=== PATIENT | female | born 1965 | race African-American/Black ===

== ENCOUNTER 2016-11-07 06:25 | Emergency (ER) | payer OTHER ==
[~2016-11-07] VITALS: Ht 154.9 cm; Wt 48.0 kg
[~2016-11-07 06:25] MED LIST: ASPI-1159 PO; FAMO40TA35 PO; PROT40 PO; [UNRECOGNIZED DRUG - REMARK]
[2016-11-07 11:20] LABS: CLARITY URINE CLEAR (CLEAR); COLOR URINE YELLOW (YELLOW); GLUCOSE URINE NEGATIVE (NEGATIVE); KETONES URINE NEGATIVE (NEGATIVE); LEUKOCYTE ESTERASE URINE NEGATIVE (NEGATIVE); NITRITE URINE NEGATIVE (NEGATIVE); OCCULT BLOOD URINE NEGATIVE (NEGATIVE); PH URINE 6.5 (4.5-8.0); PROTEIN URINE NEGATIVE (NEGATIVE); SPECIFIC GRAVITY URINE 1.009 (1.005-1.030); UROBILINOGEN URINE 0.2 E.U./dL (0.2-1.0)
[2016-11-07 12:29] VITALS: BP 128/74
== END 2016-11-07 12:46 | disposition home or self-care (01) ==
LOC: ER 09:56
DX: R59.0 Localized enlarged lymph nodes (principal); R19.00 Intra-abdominal and pelvic swelling, mass and lump, unspecified site; I25.2 Old myocardial infarction; Z79.82 Long term (current) use of aspirin
CPT/HCPCS: 81003; 99283; Z7610

== ENCOUNTER 2019-04-25 00:24 | Emergency (ER) | payer OTHER ==
[~2019-04-25 00:24] MED LIST changes: -ASPI-1159 PO; +ASPI-1497 PO; -FAMO40TA35 PO; +FAMO40TA70 PO
== END 2019-04-25 00:40 | disposition left against medical advice (07) ==
LOC: ER 00:24
DX: R00.0 Tachycardia, unspecified (principal); Z53.21 Procedure and treatment not carried out due to patient leaving prior to being seen by health care provider